=== PATIENT | male | born 1950 | race Caucasian/White ===

== ENCOUNTER 2023-01-04 07:00 | Emergency (ER) | payer MEDICARE, BC ==
[~2023-01-04] VITALS: Ht 175.3 cm; Wt 68.0 kg
--- NOTE | 2023-01-04 07:19 | NUR ---
PT IS IN ROOM #2A. DR TANNER EVALUATED THE PT.
[2023-01-04] MEDS ORDERED: METFORMIN (07:22)
[2023-01-04] MEDS ORDERED: COREG (07:22)
[2023-01-04] MEDS ORDERED: LOVENOX (07:22)
[2023-01-04] MEDS ORDERED: TRAZODONE (07:22)
--- NOTE | 2023-01-04 07:23 | NUR ---
INFORMATION ON MEDICATIONS FROM [facility] WITH NO DOSAGES , [facility] NOT.
--- NOTE | 2023-01-04 10:00 | NUR ---
PT WAS EVALUATED BY DR HOOKS. PT WAS D/C'd TO HOME. D/C INSTRUCTIONS GIVEN TO THE PT AND TO AMBULANCE EMT. PT WAS TRANSFERED BACK TO HIS HOME VIA [facility].
[2023-01-04 10:10] VITALS: BP 131/68
== END 2023-01-04 10:11 | disposition home or self-care (01) ==
LOC: ER 07:00
DX: Z43.0 Encounter for attention to tracheostomy (principal); R07.89 Other chest pain; I25.10 Atherosclerotic heart disease of native coronary artery without angina pectoris; E11.9 Type 2 diabetes mellitus without complications; Z79.899 Other long term (current) drug therapy
CPT/HCPCS: 71045; A4663